=== PATIENT | female | born 1950 | race Caucasian/White ===

== ENCOUNTER 2018-05-05 11:44 | Outpatient (CLI) | payer MEDICARE, SELFPAY ==
--- NOTE | 2018-05-05 11:45 | DI.US_ITS ---
SYMPTOMS/DIAGNOSIS: SOFT TISSUE MASS, M79.9, APPROXIMATELY 4.5 X 4 CM ROUND, MOBILE, SOFT, WELL-DEFINED MASS IN RIGHT UPPER QUADRANT, RECENTLY GROWN ULTRASOUND OF THE SOFT TISSUE: The area of palpable abnormality was scanned. There is a smoothly marginated homogeneous ovoid lesion isoechoic to fat corresponding to the palpable abnormality. It measures 2.9 x 1.3 x 2.9 cm and is consistent with a simple lipoma. No fluid collection or suspicious findings are seen. IMPRESSION: A 2.9 cm lipoma corresponding to the palpable abnormality.
== END 2018-05-05 12:04 ==
PROVIDERS: PCP Nurse Practitioner Family; Visit Provider Nurse Practitioner
DX: R22.2 Localized swelling, mass and lump, trunk (principal); D17.79 Benign lipomatous neoplasm of other sites
CPT/HCPCS: 76705

== ENCOUNTER 2018-07-23 16:04 | Outpatient (REF) | payer MEDICARE, SELFPAY | END 2018-07-23 16:24 | LOC: NCHCN 16:04 | PROVIDERS: PCP Nurse Practitioner Family; Visit Provider Nurse Practitioner | DX: R35.0 Frequency of micturition (principal) | CPT/HCPCS: 87077; 87086; 87186 ==

== ENCOUNTER 2018-10-24 12:07 | Outpatient (REF) | payer MEDICARE, SELFPAY ==
[2018-10-24 14:26] LABS: Cholesterol 266 mg/dL (50-200); HDL Cholesterol 99 mg/dL (40-60); LDL CHOLESTEROL 155 mg/dL (<100); Triglyceride 46 mg/dL (30-150)
== END 2018-10-24 12:27 ==
LOC: NCHCN 12:07
PROVIDERS: PCP Nurse Practitioner Family; Visit Provider Nurse Practitioner
DX: E03.9 Hypothyroidism, unspecified (principal)
CPT/HCPCS: 80061; 83721; 84443

== ENCOUNTER 2018-12-08 15:55 | Outpatient (REF) | payer MEDICARE, SELFPAY | END 2018-12-08 16:15 | LOC: NCHCN 15:55 | PROVIDERS: PCP Nurse Practitioner Family; Visit Provider Nurse Practitioner Family | DX: N39.0 Urinary tract infection, site not specified (principal) | CPT/HCPCS: 87077; 87086; 87186 ==

== ENCOUNTER 2018-12-15 10:49 | Outpatient (CLI) | payer MEDICARE, SELFPAY ==
--- NOTE | 2018-12-15 10:08 | DI.RAD_ITS ---
SYMPTOMS/DIAGNOSIS: RT KNEE PAIN RIGHT KNEE: There is mild narrowing of the medial femoral tibial joint space. Spurring is seen from the femoral condyles and tibial plateaus, greater medially. There is mild spurring at the articular aspect of the patella and quadriceps insertion. No joint effusion is seen. IMPRESSION: Mild to moderate degenerative changes.
== END 2018-12-15 11:09 ==
PROVIDERS: PCP Nurse Practitioner Family; Referring Provider Nurse Practitioner Family; Visit Provider Student in an Organized Health Care Education/Training Program
DX: M25.561 Pain in right knee (principal); M17.11 Unilateral primary osteoarthritis, right knee
CPT/HCPCS: 73562; 99201; 99204; 99202

== ENCOUNTER → 2019-01-05 14:56 | Outpatient (BNVA) | payer MEDICARE, SELFPAY | PROVIDERS: PCP Nurse Practitioner Family; Referring Provider Nurse Practitioner Family; Visit Provider Student in an Organized Health Care Education/Training Program | DX: M17.11 Unilateral primary osteoarthritis, right knee (principal); M79.604 Pain in right leg | CPT/HCPCS: 20610; 99212; 99213; J1040 ==

== ENCOUNTER 2019-02-02 15:52 | Outpatient (REF) | payer MEDICARE, SELFPAY ==
[2019-02-02 21:33] LABS: ALT 27 U/L (12-78); AST 21 U/L (15-37); Albumin 3.8 g/dL (3.4-5.0); Alkaline Phosphatase 112 U/L (46-116); Anion Gap 10.5 mmol/L (3-11); BUN 19 mg/dL (7-18); Bilirubin, Total 0.4 mg/dL (0.2-1.0); CO2 25.5 mmol/L (21.0-32.0); CREATININE 0.84 mg/dL (0.55-1.02); Calculated LDL 118; Chloride 103 mmol/L (98-107); Cholesterol 243 mg/dL (50-200); Glucose 73 mg/dL (70-100); HDL Cholesterol 115 mg/dL (40-60); Potassium 3.9 mmol/L (3.5-5.1); Sodium 139 mmol/L (136-145); Total Protein 7.4 g/dL (6.4-8.2); Triglyceride 54 mg/dL (30-150)
[2019-02-04 11:12] LABS: Hepatitis C Ab w Rflx HCV PCR Negative (NEGAT)
== END 2019-02-02 16:12 ==
LOC: NCHCN 15:52
PROVIDERS: PCP Nurse Practitioner Family; Visit Provider Nurse Practitioner Family
DX: E03.9 Hypothyroidism, unspecified (principal); E78.5 Hyperlipidemia, unspecified; K30 Functional dyspepsia; G47.00 Insomnia, unspecified; N39.0 Urinary tract infection, site not specified; M79.604 Pain in right leg; N30.10 Interstitial cystitis (chronic) without hematuria; C50.919 Malignant neoplasm of unspecified site of unspecified female breast
CPT/HCPCS: 80053; 80061; 83721; 86803

== ENCOUNTER → 2019-02-16 14:50 | Outpatient (BNVA) | payer MEDICARE, SELFPAY | PROVIDERS: PCP Nurse Practitioner Family; Referring Provider Nurse Practitioner Family; Visit Provider Student in an Organized Health Care Education/Training Program | DX: M17.11 Unilateral primary osteoarthritis, right knee (principal); Z98.890 Other specified postprocedural states | CPT/HCPCS: 99213 ==

== ENCOUNTER 2019-03-11 00:30 | Outpatient (CLI) | payer MEDICARE, SELFPAY ==
--- NOTE | 2019-03-11 10:47 | DI.MRI_ITS ---
SYMPTOMS/DIAGNOSIS: RT KNEE PAIN, M17.11, UNILATERAL OSTEOARTHRITIS RT KNEE RIGHT KNEE MRI: Axial T 2 fat sat, coronal T 1, Coronal T 2 fat sat, sagittal proton density, sagittal T 2 fat sat and sagittal proton density thin ACL pulse sequences were performed. There is a small joint effusion. The extensor mechanism of the knee appears intact. No cruciate or meniscal tear is apparent. There are mild hypertrophic bony changes. There is no demonstrated osteochondral defect. The patella and patella cartilage and medial and lateral patellar retinaculum and medial and lateral collateral ligaments of the knee are intact. SUMMARY: A small joint effusion is demonstrated. Mild degenerative bony changes are apparent. There is no evidence of a meniscal or cruciate tear.
== END 2019-03-11 00:50 ==
PROVIDERS: PCP Nurse Practitioner Family; Visit Provider Student in an Organized Health Care Education/Training Program
DX: M17.11 Unilateral primary osteoarthritis, right knee (principal); M25.561 Pain in right knee; M25.461 Effusion, right knee
CPT/HCPCS: 73721

== ENCOUNTER → 2019-03-13 10:39 | Outpatient (BNVA) | payer MEDICARE, SELFPAY | PROVIDERS: PCP Nurse Practitioner Family; Referring Provider Nurse Practitioner Family; Visit Provider Student in an Organized Health Care Education/Training Program | DX: S83.271A Complex tear of lateral meniscus, current injury, right knee, initial encounter (principal); X58.XXXA Exposure to other specified factors, initial encounter | CPT/HCPCS: 99213 ==

== ENCOUNTER 2019-11-05 12:29 | Outpatient (REF) | payer MEDICARE, SELFPAY ==
[2019-11-05 21:21] LABS: Magnesium 2.1 mg/dL (1.8-2.4); TSH (W/Ref FT4) 1.99 uIU/mL (0.36-3.74); Vitamin B12 1838 pg/mL (193-986)
== END 2019-11-05 12:49 ==
LOC: NCHCN 12:29
PROVIDERS: PCP Nurse Practitioner Family; Visit Provider Nurse Practitioner Family
DX: E03.9 Hypothyroidism, unspecified (principal); E78.5 Hyperlipidemia, unspecified; F41.8 Other specified anxiety disorders; J30.2 Other seasonal allergic rhinitis; K30 Functional dyspepsia; N39.0 Urinary tract infection, site not specified; C50.919 Malignant neoplasm of unspecified site of unspecified female breast; N30.10 Interstitial cystitis (chronic) without hematuria
CPT/HCPCS: 82607; 83735; 84443

== ENCOUNTER 2020-01-15 08:13 | Outpatient (CLI) | payer MEDICARE, SELFPAY ==
--- NOTE | 2020-01-15 | DI.RAD_ITS ---
EXAM: XR LUMBAR SPINE COMPLETE CLINICAL HISTORY: LOW BACK PAIN < 6 MONTHS AND SACRAL AREA PAIN, M54.5. TECHNIQUE: 2D digital imaging was performed. COMPARISON: No exams were available for comparison FINDINGS: There are 5 lumbar type vertebral bodies. There is a mild left convex curvature of the spine. Small osteophytes are seen at several disc levels. The disc heights are well maintained. There are degen erative changes of the facets from L3-4 through L5-S1. No spondylolysis or spondylolisthesis is pres ent. No acute fracture or subluxation is present. IMPRESSION: Mild degenerative changes of the lumbar spine. DATA REPOSITORY: RADIATION DOSE DELIVERED:
--- NOTE | 2020-01-15 | DI.RAD_ITS ---
EXAM: XR PELVIS AP CLINICAL HISTORY: LOW BACK PAIN < 6 MONTHS, M54.5. TECHNIQUE: 2D digital imaging was performed. COMPARISON: No exams were available for comparison FINDINGS: Mild degenerative changes are seen in the hips bilaterally. The sacroiliac joints and symphysis pubi s are unremarkable. Bones are normally mineralized. The soft tissues are unremarkable. IMPRESSION: Mild degenerative changes of the hips. DATA REPOSITORY: RADIATION DOSE DELIVERED:
== END 2020-01-15 08:33 ==
PROVIDERS: PCP Nurse Practitioner Family; Visit Provider Internal Medicine
DX: M54.5 Low back pain (principal); M16.0 Bilateral primary osteoarthritis of hip; M47.817 Spondylosis without myelopathy or radiculopathy, lumbosacral region
CPT/HCPCS: 72110; 72170

== ENCOUNTER → 2020-02-17 09:51 | Outpatient (BNVA) | payer MEDICARE, SELFPAY | PROVIDERS: PCP Nurse Practitioner Family; Referring Provider Nurse Practitioner Family; Visit Provider Surgery | DX: L72.3 Sebaceous cyst (principal); D17.1 Benign lipomatous neoplasm of skin and subcutaneous tissue of trunk | CPT/HCPCS: 99201; 99213 ==

== ENCOUNTER → 2020-02-19 10:23 | Outpatient (BNVA) | payer MEDICARE, SELFPAY | PROVIDERS: PCP Nurse Practitioner Family; Referring Provider Nurse Practitioner Family; Visit Provider Surgery | DX: L72.8 Other follicular cysts of the skin and subcutaneous tissue (principal) | CPT/HCPCS: 11420; 99212 ==

== ENCOUNTER 2020-02-19 12:56 | Outpatient (REF) | payer MEDICARE, SELFPAY ==
--- NOTE | 2020-02-19 10:50 | SKI_PTH ---
PATIENT: Parvin Orellana LOC: [facility] U#:[id number] AGE/SX: 69/F ROOM: RE02/19/[address]: Margo Aguilar : 1950 BED: DIS: 02/19/2020 SPEC #: [id number] RECD: 02/19/20 13:04 STATUS: JACKIE REQ #: [id number] GAURI: 02/19/20 10:[address]: Margo Aguilar DEPT: Surgical Specimen RECD BY: Lisa Angeles ENTERED: 02/19/20 13:04 SP TYPE: KENNETH PEREIRA DR: Kristie Sellers Tissues: 1 - SKIN CYST/TAG/DEBRIDEMENT Procedures: SKIN LEVEL 4 Comments: [id number]
== END 2020-02-19 13:16 ==
LOC: LBN 12:56
PROVIDERS: PCP Nurse Practitioner Family; Visit Provider Surgery
DX: L72.8 Other follicular cysts of the skin and subcutaneous tissue (principal); L72.11 Pilar cyst
CPT/HCPCS: 88304; 88305

== ENCOUNTER 2020-10-24 16:43 | Outpatient (REF) | payer MEDICARE, SELFPAY ==
[2020-10-24 13:58] LABS: Anion Gap 5.2 mmol/L (3-11); BUN 14 mg/dL (7-18); CO2 26.8 mmol/L (21.0-32.0); CREATININE 0.8 mg/dL (0.55-1.02); Calcium 9.1 mg/dL (8.5-10.1); Calculated LDL 135 mg/dL (<100); Chloride 107 mmol/L (98-107); Cholesterol 237 mg/dL (<200); Glucose 90 mg/dL (74-106); HDL Cholesterol 94 mg/dL (40-60); Magnesium 2.1 mg/dL (1.8-2.4); Potassium 4.6 mmol/L (3.5-5.1); Sodium 139 mmol/L (136-145); TSH (W/Ref FT4) 2.86 uIU/mL (0.36-3.74); Triglyceride 41 mg/dL (<150); Vitamin B12 1010 pg/mL (193-986)
== END 2020-10-24 16:44 | disposition home or self-care (01) ==
LOC: NCHCN 16:43
PROVIDERS: PCP Nurse Practitioner Family; Visit Provider Nurse Practitioner Family
DX: E03.9 Hypothyroidism, unspecified (principal); E78.5 Hyperlipidemia, unspecified; R03.0 Elevated blood-pressure reading, without diagnosis of hypertension
CPT/HCPCS: 80048; 80061; 82607; 83735; 84443

== ENCOUNTER 2021-10-13 00:33 | Outpatient (CLI) | payer MEDICARE, SELFPAY ==
--- NOTE | 2021-10-13 | DI.DEXA_ITS ---
Exam(s) XR DEXA BONE DENSITY W/WO FILOMENA EXAM: XR DEXA BONE DENSITY W/WO FILOMENA CLINICAL HISTORY: OTHER DISORDER BONE DENSITY M85.88 TECHNIQUE: COMPARISON: No exams were available for comparison FINDINGS: Lateral Spine Image: Unremarkable. No compression deformities identified. Left hip: Total T-Score: -1.0 Total Z-Score: 0.6 T- and Z-scores: Within normal limits. Lumbar Spine: Total T-Score: -1.2 Total Z-Score: 1.0 T- and Z-scores: Findings consistent with osteopenia. IMPRESSION: No evidence of osteoporosis.
== END 2021-10-13 00:53 ==
PROVIDERS: PCP Nurse Practitioner Family; Visit Provider Nurse Practitioner Family
DX: M85.88 Other specified disorders of bone density and structure, other site (principal); Z13.820 Encounter for screening for osteoporosis
CPT/HCPCS: 77080

== ENCOUNTER 2021-11-07 18:22 | Outpatient (REF) | payer MEDICARE, SELFPAY ==
[2021-11-07 15:36] LABS: Anion Gap 8.3 mmol/L (3-11); BUN 16 mg/dL (7-18); CO2 26.7 mmol/L (21.0-32.0); CREATININE 0.9 mg/dL (0.55-1.02); Calcium 9.2 mg/dL (8.5-10.1); Calculated LDL 155 mg/dL (<100); Chloride 104 mmol/L (98-107); Cholesterol 273 mg/dL (<200); Glucose 92 mg/dL (74-106); HDL Cholesterol 106 mg/dL (40-60); Magnesium 2.5 mg/dL (1.8-2.4); Potassium 4.3 mmol/L (3.5-5.1); Sodium 139 mmol/L (136-145); TSH (W/Ref FT4) 1.97 uIU/mL (0.36-3.74); Triglyceride 61 mg/dL (<150); Vitamin B12 1174 pg/mL (193-986)
== END 2021-11-07 18:23 | disposition home or self-care (01) ==
LOC: NCHCN 18:22
PROVIDERS: PCP Nurse Practitioner Family; Visit Provider Nurse Practitioner Family
DX: E03.9 Hypothyroidism, unspecified (principal); R03.0 Elevated blood-pressure reading, without diagnosis of hypertension; K30 Functional dyspepsia; N30.10 Interstitial cystitis (chronic) without hematuria; F43.10 Post-traumatic stress disorder, unspecified; M85.88 Other specified disorders of bone density and structure, other site
CPT/HCPCS: 80048; 80061; 82607; 83735; 84443

== ENCOUNTER → 2022-06-20 10:46 | Outpatient (BNVA) | payer MEDICARE, SELFPAY | PROVIDERS: PCP Nurse Practitioner Family; Referring Provider Nurse Practitioner Family; Visit Provider Surgery | DX: D17.9 Benign lipomatous neoplasm, unspecified (principal) | CPT/HCPCS: 99213 ==

== ENCOUNTER 2022-07-13 08:00 | Day surgery (SDC) | payer MEDICARE, SELFPAY ==
--- NOTE | 2022-07-12 14:10 | PDOC.DSDIS_ITS ---
Date of service: 07/13/22 Time of Service: 11:12 Discharge Plan Disposition Patient Disposition: HOME Condition: Good Condition: Good Discharge Details Reason For Visit: Lipoma excision Attending Provider: Ozzie Aguayo Primary Care Provider: Kristie Sellers Home Meds and New Rx's Prescriptions: Continued Dual Action Complete [phone] mg tablet,chewable 1 tab PO BID alprazolam [Xanax] 0.5 mg tablet 0.5 mg PO QHS PRN cholecalciferol (vitamin D3) 25 mcg (1,000 unit) capsule 25 mcg PO DAILY oxymetazoline [Afrin (oxymetazoline)] 0.05 % spray,non-aerosol 2 spray ECTOR Q12H PRN levothyroxine 50 mcg capsule 50 mcg PO DAILY B-complex with vitamin C [Super B Complex-Vitamin C] Tablet 1 tab PO DAILY nitrofurantoin monohyd/m-cryst [Macrobid] 100 mg capsule 100 mg PO Q12H PRN Rx Instructions: must administer with a meal/food amitriptyline 10 mg tablet 10 mg PO BID docusate sodium [Colace] 100 mg capsule 100 mg PO DAILY oxymetazoline [12 Hour Nasal Relief [place]] 0.05 % spray,non-aerosol 2 spray intranasal Q12H PRN prazosin 1 mg capsule 1 mg PO QHS simvastatin 20 mg tablet 20 mg PO DAILY Gaviscon 80-14.2 mg tablet,chewable 1 tab PO DAILY cbd 25 mg gum PO Discharge Instructions Additional Instructions: 1. Resume all of your medications. 2. Okay to use aspirin and ibuprofen over the counter as needed. You should alternate these 3. Leave bandages in place for 24 hours, then remove. 4. Shower with warm soapy water. Pat dry. Use a bandaid if needed to protect your clothing. 5. No soaking or tub baths until I see you in the office. 6. No heavy lifting until I see you in the office. 7.Call the office (or go directly to the emergency room after hours) if you notice any of the following: Develop chills (warm to touch), or if you have a thermometer and your temperature is above 101 Difficulty breathing or difficultly swallowing Persistent vomiting Any bleeding ? exceeding one tablespoon 8. Call your physician if the site where your intravenous was started becomes red, swollen, painful, and warm to touch. Referrals: Ozzie Aguayo MD [ [facility] STAFF PHYSICIAN] - (10-14 days for routine follow up) Activity:: Activity as Tolerated Remove Dressings/Wound Care:: 24 hours Shower/Bathe:: 24 hours Diet:: As Tolerated DS: Diagnosis Discharge Diagnosis (1) Lipoma: Status: Acute Asessment and Plan: Follow-up in my office 10 to 14 days for routine follow-up and suture removal
--- NOTE | 2022-07-12 14:13 | ROE_ITS ---
Date of service: 07/13/22 Time of Service: 11:13 Operative Note Operative Note DATE OF PROCEDURE: 07/13/22 PRE-OP DIAGNOSIS: Lipoma left lower back, lipoma right upper quadrant POST-OP DIAGNOSIS: same PROCEDURE: Excision and primary closure of lipomas SURGEON: Ozzie Aguayo [employer]UTIONS DIRECTOR: Lay Dunlap ANESTHESIA TYPE: Local By Surgeon and MAC Refer to Anesthesia Record ESTIMATED BLOOD LOSS: 50 PATHOLOGY: other (Lipoma left lower back, lipoma right upper quadrant) COMPLICATIONS: None Patient was transported to: same day Patient's condition: stable Procedure Description: After establishing an appropriate level of anesthetic, we assisted the patient into the right lateral decubitus position. I prepped and draped the right lower back. Next, I established a field block using local anesthetic. I then made a linear incision over the lipoma. I dissected down through the subcutaneous fat until I encountered the capsule of the lipoma. Next, using circumferential dissection with a combination of Metzenbaum scissors and Bovie electrocautery, I completely excised the lipoma down to the level of the sacroiliac fascia. Specimen was passed off the field. The wound was irrigated and carefully examined. It appeared hemostatic. I used Vicryl stitches to approximate the deep skin and obliterate the potential space. Next, the skin was closed with interrupted nylon stitches. Bandages were applied, the patient was assisted back to supine position. I then prepped and draped the area of the right upper quadrant. Again, I established a field block using local anesthetic. Similar to the back, I incised the skin and dissected down to the capsule of the lipoma. I then used circumferential dissection to elevated up into the operative field. I divided the filmy adhesions along the lower border and passed off the specimen. I then irrigated the wound. There was a minimal amount of bleeding from the subcutaneous fat that was easily controlled with Bovie. Vicryl stitches were used to close the deep space, and the skin was closed with a running subcuticular stitch. Bandages were applied, and the patient was allowed awaken from the anesthetic and brought to the same-day recovery unit
--- NOTE | 2022-07-13 05:08 | ANES.PREOP_ITS ---
General Info Date of Service Date Performed: 07/13/22 Height: 5 ft 5 in Weight: 60.06 kg Body Mass Index (BMI): 22.0 Surgical Procedure: Operation Date: 07/13/22 09:10 Proposed Procedure Side Surgeon p Excision and Closure of Soft Tissue Masses Ozzie Aguayo MD Meds Allergies and Home Medications Allergies Allergy/AdvReac Type Severity Reaction Status Date / Time Penicillins Allergy Severe Anaphylaxsi Unverified 07/13/22 08:35 s atorvastatin AdvReac Severe abdominal Verified 07/13/22 08:35 pain, trapped gas oxycodone [Oxycodone] AdvReac Intermediate I get Unverified 07/13/22 08:35 severe energy, extreme hyperactivity Sulfa (Sulfonamide AdvReac Intermediate hives Unverified 07/13/22 08:35 Antibiotics) Home Medication Medication Instructions Recorded B-complex with vitamin C (Super B 1 tab PO DAILY 02/16/20 Complex-Vitamin C tablet) alprazolam 0.5 mg tablet (Xanax) 0.5 mg PO QHS PRN 02/16/20 cholecalciferol (vitamin D3) 25 25 mcg PO DAILY 02/16/20 mcg (1,000 unit) capsule famotidine-Ca carb-mag hydrox 10 1 tab PO BID 02/16/20 mg-800 mg-165 mg chewable tablet (Dual Action Complete) levothyroxine 50 mcg capsule 50 mcg PO DAILY 02/16/20 oxymetazoline 0.05 % nasal spray 2 spray intranasal Q12H PRN 02/16/20 (Afrin (oxymetazoline)) amitriptyline 10 mg tablet 10 mg PO BID 08/09/21 docusate sodium 100 mg capsule 100 mg PO DAILY 08/09/21 (Colace) oxymetazoline 0.05 % nasal spray 2 spray intranasal Q12H PRN 08/09/21 (12 Hour Nasal Relief [place]) Al hyd-Mg tr-alg ac-sod bicarb 80 1 tab PO DAILY 05/31/22 mg-14.2 mg chewable tablet (Gaviscon) cbd PO 05/31/22 prazosin 1 mg capsule 1 mg PO QHS 05/31/22 simvastatin 20 mg tablet 20 mg PO DAILY 05/31/22 nitrofurantoin 100 mg PO Q12H PRN 06/20/22 monohydrate/macrocrystals 100 mg capsule (Macrobid) Current Visit Medications: Current Medications Generic Name Dose Route Start Last Admin Trade Name Freq PRN Reason Stop Dose Admin Acetaminophen 1,000 mg 07/13/22 06:00 Acetaminophen 500 Mg Tab PO 07/13/22 23:59 PREOP BRANDEN Celecoxib 200 mg 07/13/22 06:00 Celecoxib 200 Mg Cap PO 07/13/22 23:59 PREOP [facility] Gabapentin 600 mg 07/13/22 06:00 Gabapentin 300 Mg Cap PO 07/13/22 16:00 PREOP [facility] Ringer's Solution 1,000 mls @ 80 mls/hr 07/13/22 06:00 IV 07/13/22 23:59 INFUSION [facility] Vancomycin/PEG/NADA/Lysine/Water 2 gm in 400 mls @ 200 mls/hr 07/13/22 06:00 Vancocin Injection IVPB 07/13/22 16:00 PREOP [facility] IV Miscellaneous Supplies 1 each 07/13/22 06:00 Iv Access IV 07/13/22 23:59 DIRECTED BRANDEN Sodium Chloride 0 ml 07/13/22 06:00 Normal Saline Flush 10 Ml Syr IV 07/13/22 23:59 PRN PRN Sodium Chloride 0 ml 07/13/22 06:00 Normal Saline 10 Ml Vial IJ 07/13/22 23:59 DIRECTED PRN Sterile Water 0 ml 07/13/22 06:00 Water,Injection,Sterile 10 Ml Vial IJ 07/13/22 23:59 DIRECTED PRN PFSH Active Problems Active Problems: Problem Status Onset Code Lipoma D17.9 Sun-damaged skin L57.8 Lipoma of abdominal wall D17.1 Sebaceous cyst L72.3 Impacted cerumen of both ears H61.23 Tear of lateral meniscus of right knee S83.281A Primary osteoarthritis of right knee M17.11 Medical History Medical History Breast cancer (~2009) Right breast 2010 Left breast ductal carcinoma in situ 2017 Depression Dyspepsia HLD (hyperlipidemia) Hypothyroidism Insomnia Interstitial cystitis Lower back pain Recurrent UTI Rosacea Seasonal allergies Stress incontinence Surgical History Surgical History History of colonoscopy (~2014) Tobacco Smoking/Tobacco Use Status: Never Alcohol Alcohol Intake: current Alcohol intake frequency: a few times a week Substance Use Substance use: Never Substance use type: does not use Vital Signs and Lab Results Vital Signs Most Recent Vital Signs in EMR: Temp Pulse Resp Pulse Ox 36.2 C L 68 16 99 07/13/22 08:25 07/13/22 08:25 07/13/22 08:25 07/13/22 08:25 Lab Results Blood Type / Crossmatch: No Data to Display Complete Blood Count: No Data to Display Complete Metabolic Panel: No Data to Display Liver Function Panel: No Data to Display Coagulation Panel: No Data to Display Cardiac Panel: No Data to Display Arterial Blood Gas: No Data to Display Venous Blood Gas: No Data to Display Pancreas Panel: No Data to Display Thyroid Panel: No Data to Display Infectious Disease: No Data to Display Blood Cultures: No Data to Display Toxicology Panel: No Data to Display Anesthesia Assessment and Plan Anesthesia History Personal History: No History of Anesthesia Complications Family History: No Family History of Anesthesia Complications Exercise Tolerance Exercise Tolerance: Metabolic Equivalents>4 Cardiac & Pulmonary Exam Cardiac Exam: Normal S1/S2 Heart Sounds Pulmonary Exam: Clear Bilateral Breath Sounds Implantable Cardiac Device Does patient have a Pacemaker or an ICD?: No Airway Exam Known Difficult Airway: No Mallampati Class: 4 Mouth Opening: Narrow (< 3cm) Thyromental Distance: Less than 3 cm Neck Range of Motion: Limited ROM Neck Circumference: Normal Teeth Condition: Normal Dentition ASA Classification ASA Score: ASA 2 Emergency Case?: No NPO Status NPO Status: NPO Clears >2 hours, Solids >8 hours Anesthesia Plan Resuscitation Status: Full Code Anesthesia Technique: General Anesthesia Airway Planned: Natural Airway Monitors Used: Standard Monitors Preoperative Comments:: 71 yo female for lipoma removal. Sig PMHx: breast CA, depression/anxiety/PTSD (xanax, amitriptyline), hypothyroid (on replacement), low back pain, never smoker, occ EtOH.
[2022-07-13 08:25] VITALS: PULSE 68; RESP 16; TEMP 36.2; O2SAT 99
[2022-07-13] MEDS: Acetaminophen 500 MG TAB 1000 MG PO (08:47)
[2022-07-13] MEDS: Gabapentin 300 MG CAP 600 MG PO (08:47)
[2022-07-13] MEDS: Celecoxib 200 MG CAP PO (08:47)
[2022-07-13] MEDS: Lactated Ringers 1,000 ML 80 ML IV (09:00)
[2022-07-13 09:25] VITALS: BMI 22.0
[2022-07-13] MEDS: Bupivacaine 0.25% Pres-Free 30 ML VIAL (10:15)
--- NOTE | 2022-07-13 10:27 | SOFT_PTH ---
PATIENT: Parvin Orellana LOC: [facility] U#:[id number] AGE/SX: 71/F ROOM: RE07/13/[address]: Ozzie Aguayo MD : 1950 BED: DIS: 07/13/2022 SPEC #: [id number] RECD: 07/13/22 13:19 STATUS: JACKIE REQ #: [id number] GAURI: 07/13/22 10:[address]: Ozzie Aguayo DEPT: Surgical Specimen RECD BY: Lisa Angeles ENTERED: 07/13/22 13:20 SP TYPE: SOFT OTHR DR: Kristie Sellers Tissues: 1 - SOFT TISSUE MISC (INC. LIPOMA) 2 - SOFT TISSUE MISC (INC. LIPOMA) Procedures: GROSS AND MICRO LEVEL 4 Comments: [id number]
[2022-07-13 11:01] VITALS: BP 115/72; PULSE 64; RESP 18; TEMP 36.5; O2SAT 98
--- NOTE | 2022-07-13 11:14 | W.ANESPOSTOP ---
Postoperative Evaluation Date, Time and Location Date Performed: 07/13/22 Time Performed: 11:15 Patient Location: Day Surgery Unit Vital Signs Most Recent Imported Vital Signs: Most Recent Vital Signs Temp Pulse Resp BP Pulse Ox 36.5 C 64 18 115/72 98 07/13/22 11:01 07/13/22 11:01 07/13/22 11:01 07/13/22 11:01 07/13/22 11:01 Pain Score Most Recent Pain Score: Most Recent Pain Score Pain Level 2 07/13/22 11:01 Assessment Mental Status: Awake (Alert & Oriented to Patient Baseline) Airway and Respiratory Function: Patent airway with normal (patient baseline) respiratory exam Cardiovascular Function: Hemodynamically Stable Hydration Status: Adequately Hydrated Nausea & Vomiting: No Nausea or Vomiting Pain: Pain is tolerable per patient Peripheral Nerve Block: Patient did not receive a nerve block
[2022-07-13 11:30] VITALS: BP 145/86; PULSE 58; RESP 18; TEMP 36.5; O2SAT 100
== END 2022-07-13 12:00 | disposition home or self-care (01) ==
PROVIDERS: PCP Nurse Practitioner Family; Visit Provider Surgery
PROC: (CPT 22903; principal; 2022-07-13 09:00)
DX: D17.1 Benign lipomatous neoplasm of skin and subcutaneous tissue of trunk (principal); E03.9 Hypothyroidism, unspecified
CPT/HCPCS: 22903; 21931; 88305; 88304; J0690; J2405

== ENCOUNTER → 2022-07-18 09:54 | Outpatient (BNVA) | payer MEDICARE, SELFPAY | PROVIDERS: PCP Nurse Practitioner Family; Referring Provider Nurse Practitioner Family; Visit Provider Surgery | DX: D17.1 Benign lipomatous neoplasm of skin and subcutaneous tissue of trunk (principal); T81.31XA Disruption of external operation (surgical) wound, not elsewhere classified, initial encounter ==

== ENCOUNTER 2022-11-13 09:41 | Outpatient (REF) | payer MEDICARE, SELFPAY ==
[2022-11-13 16:25] LABS: ALT 28 U/L (14-59); AST 19 U/L (15-37); Albumin 3.8 g/dL (3.4-5.0); Alkaline Phosphatase 91 U/L (46-116); Anion Gap 7.5 mmol/L (3-11); BUN 19 mg/dL (7-18); Bilirubin, Total 0.5 mg/dL (0.2-1.0); CO2 28.5 mmol/L (21.0-32.0); CREATININE 0.9 mg/dL (0.55-1.02); Calcium 9.6 mg/dL (8.5-10.1); Calculated LDL 153 mg/dL (<100); Chloride 104 mmol/L (98-107); Cholesterol 277 mg/dL (<200); Glucose 100 mg/dL (74-106); HDL Cholesterol 113 mg/dL (40-60); Magnesium 2.3 mg/dL (1.8-2.4); Potassium 4.9 mmol/L (3.5-5.1); Sodium 140 mmol/L (136-145); Total Protein 7.1 g/dL (6.4-8.2); Triglyceride 59 mg/dL (<150); Vitamin B12 935 pg/mL (193-986)
== END 2022-11-13 09:42 | disposition home or self-care (01) ==
LOC: NCHCN 09:41
PROVIDERS: PCP Nurse Practitioner Family; Visit Provider Nurse Practitioner Family
DX: E03.9 Hypothyroidism, unspecified (principal); E78.5 Hyperlipidemia, unspecified; I10 Essential (primary) hypertension; K30 Functional dyspepsia; M85.88 Other specified disorders of bone density and structure, other site; Z79.899 Other long term (current) drug therapy
CPT/HCPCS: 80053; 80061; 82306; 82607; 83735; 84443

== ENCOUNTER → 2023-06-17 11:02 | Outpatient (BNVA) | payer MEDICARE, SELFPAY | PROVIDERS: PCP Nurse Practitioner Family; Referring Provider Nurse Practitioner Family; Visit Provider Surgery | DX: Z12.11 Encounter for screening for malignant neoplasm of colon (principal) ==

== ENCOUNTER → 2023-07-16 02:11 | Outpatient (CLI) | payer MEDICARE, SELFPAY ==
--- NOTE | 2023-07-16 | DI.US_ITS ---
Exam(s) US SOFT TISS ABD WALL/LOW BACK EXAM: US SOFT TISS ABD WALL/LOW BACK CLINICAL HISTORY: ABD MASS,R19.00. TECHNIQUE: Ultrasound was performed using standard protocol. COMPARISON: US US soft tiss abd wall/low back from 05/05/2018 FINDINGS: Sonographic assessment utilizing grayscale and color Doppler imaging was performed and targeted to th e area of clinical concern. There is a subtle area which is isoechoic to the surrounding fat and measures 2.2 x 0.8 x 1.7 cm. Th is appears to correspond to the palpable abnormality and is suggestive of a lipoma. No suspicious cy stic or solid masses are seen sonographically. IMPRESSION: Findings suggestive of a 2.2 x 0.8 x 1.7 cm lipoma. DATA REPOSITORY:
== END ==
PROVIDERS: PCP Nurse Practitioner Family; Visit Provider Nurse Practitioner Family
DX: R19.03 Right lower quadrant abdominal swelling, mass and lump (principal)
CPT/HCPCS: 76705

== ENCOUNTER 2023-08-13 13:20 | Day surgery (SDC) | payer MEDICARE, SELFPAY ==
--- NOTE | 2023-08-12 12:56 | HPE_ITS ---
History of Present Illness Narrative: Patient is here today for colonoscopy for CRC screening.??? They completed a bowel prep with just a clear yellow residual effluent.? They not having any chest pain or shortness of breath, currently.? They are not experiencing any fever or chills.? They deny any productive cough or upper respiratory tract infection signs or symptoms.? They are not having abdominal pain, or nausea and vomiting.? They have not had any changes in medications, past medical history or past surgical history since previously being seen in the office. They have not had any accidents or have been in the ER since the clinic pre-operative evaluation. ??I reviewed the procedure with the patient today, including risks and benefits of the procedure, and what they could expect at home for recovery.? All questions are answered to the patient?s satisfaction today, and they are stable to proceed with the proposed procedure. H: Pt here for colonoscopy, last one was done at [facility] 2004 pt states absolutley 100% they didnt find anything. Pt reports the prep was not well so she needs it done. Pt reports paternal grandfather had colon cancer. I did review her report from [facility] in 2004. It was significant for internal hemorrhoids. There were no polyps or diverticula noted. Pt seen at the request of PCP regarding colon cancer screening. Pt has had colon cancer screening before.? They denies problems with constipation or diarrhea.? They deny any pain or difficulty with bowel movements, or rectal bleeding.? There is family history of any colon cancer-paternal grandfather..? Pt has not had any unexplained weight loss.? Their appetite is good.? ?They deny heart, lung, or kidney problems. She does have GERD and takes pepcid and lifestyle modifications. . They have not had any prior colo-rectal surgery.? The patient has not had a prior MELLY.? They deny any problems with anesthesia in the past. No pain or bleeding from the hemorrhoids. Anesthesia: general (without airway) Previous surgical intolerances: No Previous surgical complications: No Pulmonary risk factors: Planned procedure: Yes Sleep apnea risks: No COPD/Asthma/Smoker:no Can climb one flight of stairs (12-13 steps) in less than 30 seconds without stopping and without symptoms: Yes The surgery proposed for this patient is: low risk Active cardiac conditions: none Active risk factors: none ASA (acetylsalicylic acid): not used Beta blockers: not used Kidneys: no concerns DM: Mi/CVA- no coffee-0 soda-0 eoth- 4/week. smoker-no ? PSHx CE lipomas -It is noted in her problem list that she had cancer in 2009. However the p atient did not mention having any surgery for breast cancer Review of Systems All systems reviewed & are unremarkable except as noted in HPI and below PFSH All Active Problems Encounter for colorectal cancer screening (Acute) External incisional dehiscence (Acute) Lipoma (Acute) back Sun-damaged skin (Acute) Lipoma of abdominal wall (Acute) Sebaceous cyst (Acute) Impacted cerumen of both ears (Acute) Tear of lateral meniscus of right knee (Acute) Primary osteoarthritis of right knee (Chronic) Injection: 01/05/2019 Medical History Osteopenia Palpitations Hypertension Lower back pain Seasonal allergies Dyspepsia Insomnia Depression Rosacea Hypothyroidism HLD (hyperlipidemia) Stress incontinence Recurrent UTI Interstitial cystitis Breast cancer (~2009) Right breast 2010 Left breast ductal carcinoma in situ 2017 Surgical History History of colonoscopy (~2014) Social History Smoking/Tobacco Use Status: Never Smoking risk assessment performed?: Yes Alcohol Intake: current Alcohol Intake frequency: a few times a week Alcohol type: wine Drug use: Never Substance use type: does not use Current gender identity: female Do you feel safe at home: Yes Do you feel safe in your relationship?: Yes Meds Allergies and Home Medications Allergies Allergy/AdvReac Type Severity Reaction Status Date / Time Penicillins Allergy Severe Anaphylaxsi Unverified 06/17/23 11:15 s atorvastatin AdvReac Severe abdominal Verified 06/17/23 11:15 pain, trapped gas oxycodone [Oxycodone] AdvReac Intermediate I get Unverified 06/17/23 11:15 severe energy, extreme hyperactivity Sulfa (Sulfonamide AdvReac Intermediate hives Unverified 06/17/23 11:15 Antibiotics) Home Medications Medication Instructions Recorded Confirmed Type B-complex with vitamin C (Super B 1 tab PO DAILY 02/16/20 06/18/23 History Complex-Vitamin C tablet) alprazolam 0.5 mg tablet (Xanax) 0.5 mg PO QHS PRN 02/16/20 06/18/23 History cholecalciferol (vitamin D3) 25 25 mcg PO DAILY 02/16/20 06/18/23 History mcg (1,000 unit) capsule levothyroxine 50 mcg capsule 50 mcg PO DAILY 02/16/20 06/18/23 History oxymetazoline 0.05 % nasal spray 2 spray intranasal Q12H PRN 02/16/20 06/18/23 History (Afrin (oxymetazoline)) amitriptyline 10 mg tablet 10 mg PO BID 08/09/21 06/18/23 History docusate sodium 100 mg capsule 100 mg PO DAILY 08/09/21 06/18/23 History (Colace) oxymetazoline 0.05 % nasal spray 2 spray intranasal Q12H PRN 08/09/21 06/18/23 History (12 Hour Nasal Relief [place]) cbd PO 05/31/22 06/18/23 History apple cider vinegar 600 mg capsule mg PO 04/03/23 06/18/23 History famotidine 20 mg tablet 40 mg PO DAILY 04/03/23 06/18/23 History bisacodyl 5 mg tablet,delayed 5 mg PO ONCE colonscopy bowel prep 06/17/23 06/18/23 Rx release (Dulcolax (bisacodyl)) #4 tabs polyethylene glycol 3350 17 238 g PO ONCE colonoscopy prep 06/17/23 06/18/23 Rx gram/dose oral powder #238 grams rosuvastatin 5 mg tablet 5 mg PO DAILY 06/17/23 06/18/23 History Exam Narrative Exam Narrative: PHYSICAL EXAM GENERAL APPEARANCE: Alert, healthy appearance, oriented, x 3,? in no acute distress HYDRATION: Well hydrated HEAD, EYES, EARS, NECK, THROAT: Head is normocephalic, pupils equal, round, reactive to light and accommodation, ocular movement intact, sclera clear and no jaundice. LUNGS: normal respiration/normal chest excursion. ?Clear to auscultation bilaterally. ?No wheeze. ?HEART: Regular rate and rhythm. no murmurs? ABDOMEN: soft and non-tender to palpation.? Normal bowel sounds.?
--- NOTE | 2023-08-12 15:30 | W.COLOREPORT ---
Colonoscopy Report Pre-op diagnosis general: CRC screening Surgeon: Margo Aguilar Anesthesia Type: General LMA/ETT Complications: None Disposition: same day Prep: Miralax/Dulcolax Procedure Description: After informed consent was obtained the patient was taken to the procedure room and placed in a left decubitous position. Monitors were applied and a time out was done. The patients name, date of , procedure, allergies to medications and metal in their body was reviewed. The patient was then sedated. Once sedated and comfortable a rectal exam was done. External exam was normal. Internal exam revealed a normal sphincter tone and no palpable masses. The prostate []. The scope was then introduced and retrofelexed. [] internal hemorrhoids were identified. The scope was then advanced to the cecum [] difficulty. The TI and appendiceal orifice were identified. The prep was []. The scope was then slowly retracted over [] minutes back into the rectum. Polyps were removed at []. The scope was removed and the patient was woken up and taken back to Same day surgery in stable condition. The patient tolerated the procedure well and there were no immediate complications. Follow up: The patient should follow up in [] years unless they develop changes in bowel habits or other new gastrointestinal complaints.
--- NOTE | 2023-08-12 15:32 | W.PM.DSUDISC ---
Discharge Plan Disposition Patient Disposition: Home Discharge Details Reason For Visit: colon scope Attending Provider: Margo Aguilar Primary Care Provider: Kristie Sellers Home Meds and New Rx's Prescriptions: Continued alprazolam [Xanax] 0.5 mg tablet 0.5 mg PO QHS PRN cholecalciferol (vitamin D3) 25 mcg (1,000 unit) capsule 25 mcg PO DAILY levothyroxine 50 mcg capsule 50 mcg PO DAILY B-complex with vitamin C [Super B Complex-Vitamin C] Tablet 1 tab PO DAILY rosuvastatin 5 mg tablet 5 mg PO DAILY amitriptyline 10 mg tablet 10 mg PO BID docusate sodium [Colace] 100 mg capsule 100 mg PO DAILY oxymetazoline [12 Hour Nasal Relief [place]] 0.05 % spray,non-aerosol 2 spray intranasal Q12H PRN cbd 25 mg gum PO apple cider vinegar 600 mg capsule PO famotidine 20 mg tablet 40 mg PO DAILY Discontinued polyethylene glycol 3350 17 gram/dose powder 238 g PO ONCE Qty: 238 0RF Rx Instructions: take per colonoscopy instructions bisacodyl [Dulcolax (bisacodyl)] 5 mg tablet,delayed release (DR/EC) 5 mg PO ONCE Qty: 4 0RF Rx Instructions: take per colonoscopy instructions Discharge Instructions Additional Instructions: DSU Colonoscopy Post-Op Instructions Instructions for Everyone who is given Anesthesia: For your safety, please do the following for the next twenty-four (24) hours: *Do Not operate a motor vehicle (car, truck, motorcycle, etc.) *Do Not drink alcoholic beverages or use any recreational drugs for the first 24 hours or while taking pain medications. The medications in your body may have a reaction that can be dangerous. *Do Not make any important decisions or sign any important papers. Findings: Follow up: 1. No lifting over 20 pounds or strenuous activity for the first 24 hours after your procedure. After 24 hours there are no restrictions on your activity but you may feel fatigued for a few days. 2. After you arrive home you may have a light meal and return to your normal diet as you can tolerate it without feeling sick to your stomach. 3. You may have a bloated, gaseous feeling in your belly (abdomen) after a colonoscopy. Passing gas and belching will help. Walking or lying down on your left side with your knees flexed may relieve the discomfort. Call the office at [phone] (Office) or [phone] (Hospital) right away if you notice any of the following: a.Vomiting of blood or ?coffee ground stools?. b.Rectal bleeding 1Tbsp, blood clots or continuous bleeding. c.Severe belly (abdominal) pain. d.A hard distended belly (abdomen) and an inability to pass gas. 4. Please don?t expect to have a normal BM (bowel movement) for 2-3 days after your procedure. 5. If there are questions regarding the findings of your procedure, please contact your doctor 6. If you are unable to contact your doctor with a problem, contact the hospital at [phone]. 7. Continue all your regular medications unless directed otherwise. I understand the above instructions and have no questions. Signature of Patient or Adult Escort Name of Responsible Adult Escort Signature of Nurse Date/Time Activity:: see above Diet:: see above Discharge Orders Discharge Orders: Discharge Order (Routine); Ordered 08/13/23 Ordered By: Margo Aguilar DS: Diagnosis Discharge Diagnosis (1) Screening for malignant neoplasm of colon performed: Status: Acute (2) Breast cancer:
[2023-08-13 14:02] VITALS: BP 130/78; PULSE 94; RESP 18; TEMP 36.4; O2SAT 99
--- NOTE | 2023-08-13 14:31 | W.SURGCON ---
Date of service: 08/13/23 Time of Service: 14:31 Assessment and Plan Assessment and plan (1) Screening for malignant neoplasm of colon performed: Status: Acute Assessment and plan: 72-year-old woman due for surveillance colonoscopy. No symptoms or increased risk factors. Plan: Colonoscopy History of Present Illness Narrative: 72-year-old woman had a colonoscopy about 15 years ago or so that was reportedly normal. She has no symptoms. An isolated grandparent had colon cancer. She has never had intra-abdominal surgery. PFSH All Active Problems Screening for malignant neoplasm of colon performed (Acute) Encounter for colorectal cancer screening (Acute) External incisional dehiscence (Acute) Sun-damaged skin (Acute) Lipoma of abdominal wall (Acute) Sebaceous cyst (Acute) Lipoma (Acute) back Impacted cerumen of both ears (Acute) Tear of lateral meniscus of right knee (Acute) Primary osteoarthritis of right knee (Chronic) Injection: 01/05/2019 Medical History Osteopenia Palpitations only a one time thing per pt. saw PCP never came up with a cause. Hypertension Lower back pain Seasonal allergies Dyspepsia Insomnia Depression Rosacea Hypothyroidism HLD (hyperlipidemia) Stress incontinence Recurrent UTI Interstitial cystitis Breast cancer (~2009) Right breast 2010 Left breast ductal carcinoma in situ 2017 Surgical History History of colonoscopy (~2014) Social History Smoking/Tobacco Use Status: Never Smoking risk assessment performed?: Yes Alcohol Intake: current Alcohol Intake frequency: a few times a week Alcohol type: wine Drug use: Never Substance use type: does not use Housing: house Current gender identity: female Do you feel safe at home: Yes Do you feel safe in your relationship?: Yes Exam Narrative Exam Narrative: General: Nontoxic, comfortable and interactive Neuro: Alert and oriented x 3 Psych: Good mood and affect, good insight and understanding into the procedure Chest: Nonlabored breathing and no wheezing Heart: Regular Results Last Vital Signs Temp 97.5 F L 08/13/23 14:02 Pulse 94 H 08/13/23 14:02 Resp 18 08/13/23 14:02 BP 130/78 08/13/23 14:02 Pulse Ox 99 08/13/23 14:02
[2023-08-13] MEDS: Lactated Ringers 1,000 ML 80 ML IV (14:32)
--- NOTE | 2023-08-13 14:34 | W.COLOREPORT ---
Date of service: 08/13/23 Time of Service: 14:34 Colonoscopy Report Procedure Description: PROCEDURES PERFORMED: 1. Colonoscopy PREOPERATIVE DIAGNOSIS: Surveillance colonoscopy POSTOPERATIVE DIAGNOSIS: Grade 1 internal hemorrhoids, sigmoid diverticulosis, sigmoid fibrosis SURGEON: Anthony Shukla MD INDICATION for procedure: The patient is a 72-year-old woman who has no symptoms and is due for surveillance colonoscopy. An isolated grandparent had colon cancer. Her last colonoscopy was more than 10 years ago and was reportedly normal. FINDINGS: Normal terminal ileum. No colon polyps. Significant diverticular disease in the sigmoid colon. There is definitely a region of fibrosis without a focal stricture or active inflammation. Mild internal hemorrhoid disease noted. SURVEILLANCE-INTERVAL/FOLLOW-UP: 10 years. Specimens: None EBL: Minimal COMPLICATIONS: None QUALITY of prep: Excellent Procedure in detail: The patient gave written consent and was in agreement with the indications, the potential risks as well as the benefits of the procedure. They were taken to the endoscopy suite and laid in the left lateral decubitus position. A timeout was performed and anesthesia was administered which was tolerated well. I started the procedure. Digital rectal and visual examination was performed and grossly within normal limits. A well-lubricated flexible colonoscope was then introduced and passed without any notable difficulty all the way to the cecum identified by the ileocecal valve and the appendiceal orifice. The terminal ileum was briefly intubated and looked normal visually. The scope was then slowly withdrawn with the above-noted findings. The patient tolerated the procedure well and was taken to the PACU in hemodynamically stable condition.
--- NOTE | 2023-08-13 14:37 | W.PM.DSUDISC ---
Date of service: 08/13/23 Time of Service: 14:37 Discharge Plan Disposition Patient Disposition: Home Condition: Good Discharge Details Reason For Visit: colon scope Attending Provider: Earnest Shukla Primary Care Provider: Kristie Sellers Home Meds and New Rx's Prescriptions: Continued alprazolam [Xanax] 0.5 mg tablet 0.5 mg PO QHS PRN cholecalciferol (vitamin D3) 25 mcg (1,000 unit) capsule 25 mcg PO DAILY levothyroxine 50 mcg capsule 50 mcg PO DAILY B-complex with vitamin C [Super B Complex-Vitamin C] Tablet 1 tab PO DAILY rosuvastatin 5 mg tablet 5 mg PO DAILY amitriptyline 10 mg tablet 10 mg PO BID docusate sodium [Colace] 100 mg capsule 100 mg PO DAILY oxymetazoline [12 Hour Nasal Relief [place]] 0.05 % spray,non-aerosol 2 spray intranasal Q12H PRN cbd 25 mg gum PO apple cider vinegar 600 mg capsule PO famotidine 20 mg tablet 40 mg PO DAILY Discontinued polyethylene glycol 3350 17 gram/dose powder 238 g PO ONCE Qty: 238 0RF Rx Instructions: take per colonoscopy instructions bisacodyl [Dulcolax (bisacodyl)] 5 mg tablet,delayed release (DR/EC) 5 mg PO ONCE Qty: 4 0RF Rx Instructions: take per colonoscopy instructions No Action aspirin [Aspir-Connie] 325 mg tablet,delayed release (DR/EC) 325 mg PO Q4H PRN Discharge Instructions Additional Instructions: FINDINGS: Stand Alone Forms: Colonoscopy Post Instructions Activity:: Activity as Tolerated Diet:: As Tolerated Discharge Orders Discharge Orders: Discharge Order (Routine); Ordered 08/13/23 Ordered By: Margo Aguilar DS: Diagnosis Discharge Diagnosis (1) Screening for malignant neoplasm of colon performed: Status: Acute
--- NOTE | 2023-08-13 14:38 | W.PM.DSUDISC ---
Date of service: 08/13/23 Time of Service: 14:39 Discharge Plan Disposition Patient Disposition: Home Condition: Good Discharge Details Reason For Visit: colon scope Attending Provider: Earnest Shukla Primary Care Provider: Kristie Sellers Home Meds and New Rx's Prescriptions: Continued alprazolam [Xanax] 0.5 mg tablet 0.5 mg PO QHS PRN cholecalciferol (vitamin D3) 25 mcg (1,000 unit) capsule 25 mcg PO DAILY levothyroxine 50 mcg capsule 50 mcg PO DAILY B-complex with vitamin C [Super B Complex-Vitamin C] Tablet 1 tab PO DAILY rosuvastatin 5 mg tablet 5 mg PO DAILY amitriptyline 10 mg tablet 10 mg PO BID docusate sodium [Colace] 100 mg capsule 100 mg PO DAILY oxymetazoline [12 Hour Nasal Relief [place]] 0.05 % spray,non-aerosol 2 spray intranasal Q12H PRN cbd 25 mg gum PO apple cider vinegar 600 mg capsule PO famotidine 20 mg tablet 40 mg PO DAILY Discontinued polyethylene glycol 3350 17 gram/dose powder 238 g PO ONCE Qty: 238 0RF Rx Instructions: take per colonoscopy instructions bisacodyl [Dulcolax (bisacodyl)] 5 mg tablet,delayed release (DR/EC) 5 mg PO ONCE Qty: 4 0RF Rx Instructions: take per colonoscopy instructions No Action aspirin [Aspir-Connie] 325 mg tablet,delayed release (DR/EC) 325 mg PO Q4H PRN Discharge Instructions Additional Instructions: FINDINGS: No polyps were found. You have diverticulosis. This is an extremely common condition which is benign and there is nothing that needs to be done about it. You have mild hemorrhoidal disease as well which is also benign and nothing needs to be done about it. Stand Alone Forms: Colonoscopy Post Instructions Activity:: Activity as Tolerated Diet:: As Tolerated Discharge Orders Discharge Orders: Discharge Order (Routine); Ordered 08/13/23 Ordered By: Margo Aguilar DS: Diagnosis Discharge Diagnosis (1) Screening for malignant neoplasm of colon performed: Status: Acute
--- NOTE | 2023-08-13 14:39 | W.ANESPRE ---
General Info Date of Service Date Performed: 08/13/23 Height: 5 ft 5 in Weight: 67.4 kg Body Mass Index (BMI): 24.7 Surgical Procedure: Operation Date: 08/13/23 14:20 Proposed Procedure Side Surgeon p Deena Shukla MD Meds Allergies and Home Medications Allergies Allergy/AdvReac Type Severity Reaction Status Date / Time Penicillins Allergy Severe Anaphylaxsi Verified 08/13/23 13:55 s atorvastatin AdvReac Severe abdominal Verified 08/13/23 13:55 pain, trapped gas oxycodone [Oxycodone] AdvReac Intermediate I get Verified 08/13/23 13:55 severe energy, extreme hyperactivity Sulfa (Sulfonamide AdvReac Intermediate hives Verified 08/13/23 13:55 Antibiotics) Home Medication Medication Instructions Recorded B-complex with vitamin C (Super B 1 tab PO DAILY 02/16/20 Complex-Vitamin C tablet) alprazolam 0.5 mg tablet (Xanax) 0.5 mg PO QHS PRN 02/16/20 cholecalciferol (vitamin D3) 25 25 mcg PO DAILY 02/16/20 mcg (1,000 unit) capsule levothyroxine 50 mcg capsule 50 mcg PO DAILY 02/16/20 amitriptyline 10 mg tablet 10 mg PO BID 08/09/21 docusate sodium 100 mg capsule 100 mg PO DAILY 08/09/21 (Colace) oxymetazoline 0.05 % nasal spray 2 spray intranasal Q12H PRN 08/09/21 (12 Hour Nasal Relief [place]) cbd PO 05/31/22 apple cider vinegar 600 mg capsule mg PO 04/03/23 famotidine 20 mg tablet 40 mg PO DAILY 04/03/23 rosuvastatin 5 mg tablet 5 mg PO DAILY 06/17/23 aspirin 325 mg tablet,delayed 325 mg PO Q4H PRN 08/13/23 release (Aspir-Connie) Current Visit Medications: Current Medications Generic Name Dose Route Start Last Admin Trade Name Freq PRN Reason Stop Dose Admin Hyoscyamine Sulfate 0.125 mg 08/13/23 08:50 Hyoscyamine 0.125 Mg Sl/Oral/Chew SL 09/12/23 08:49 DIRECTED PRN Ringer's Solution 1,000 mls @ 80 mls/hr 08/13/23 06:00 08/13/23 14:32 IV 12/19/23 23:59 80 mls/hr INFUSION BRANDEN Administration IV Miscellaneous Supplies 1 each 08/13/23 06:00 Iv Access IV 08/13/23 23:59 DIRECTED BRANDEN Ondansetron HCl 4 mg 08/13/23 08:50 Ondansetron 4 Mg/2 Ml Vial IVP 09/12/23 08:49 Q4H PRN PRN Nausea / Vomiting Sodium Chloride 0 ml 08/13/23 06:00 Normal Saline Flush 10 Ml Syr IV 08/13/23 23:59 PRN PRN Sodium Chloride 0 ml 08/13/23 06:00 Normal Saline 10 Ml Vial IJ 08/13/23 23:59 DIRECTED PRN Sterile Water 0 ml 08/13/23 06:00 Water,Injection,Sterile 10 Ml Vial IJ 08/13/23 23:59 DIRECTED PRN PFSH Active Problems Active Problems: Problem Status Onset Code Screening for malignant neoplasm of colon performed Z12.11 Encounter for colorectal cancer screening Z12.11, Z12.12 External incisional dehiscence T81.31XA Sun-damaged skin L57.8 Lipoma of abdominal wall D17.1 Sebaceous cyst L72.3 Lipoma D17.9 Impacted cerumen of both ears H61.23 Tear of lateral meniscus of right knee S83.281A Primary osteoarthritis of right knee M17.11 Medical History Medical History Osteopenia Palpitations only a one time thing per pt. saw PCP never came up with a cause. Hypertension Lower back pain Seasonal allergies Dyspepsia Insomnia Depression Rosacea Hypothyroidism HLD (hyperlipidemia) Stress incontinence Recurrent UTI Interstitial cystitis Breast cancer (~2009) Right breast 2010 Left breast ductal carcinoma in situ 2017 Surgical History Surgical History History of colonoscopy (~2014) Tobacco Smoking/Tobacco Use Status: Never Alcohol Alcohol Intake: current Alcohol intake frequency: a few times a week Alcohol type: wine Substance Use Substance use: Never Substance use type: does not use Vital Signs and Lab Results Vital Signs Most Recent Vital Signs in EMR: Most Recent Vital Signs Temp Pulse Resp BP Pulse Ox 36.4 C L 94 H 18 130/78 99 08/13/23 14:02 08/13/23 14:02 08/13/23 14:02 08/13/23 14:02 08/13/23 14:02 Lab Results Blood Type / Crossmatch: No Data to Display Complete Blood Count: No Data to Display Complete Metabolic Panel: No Data to Display Liver Function Panel: No Data to Display Coagulation Panel: No Data to Display Cardiac Panel: No Data to Display Arterial Blood Gas: No Data to Display Venous Blood Gas: No Data to Display Pancreas Panel: No Data to Display Thyroid Panel: No Data to Display Infectious Disease: No Data to Display Blood Cultures: No Data to Display Toxicology Panel: No Data to Display Anesthesia Assessment and Plan Anesthesia History Personal History: No History of Anesthesia Complications Family History: No Family History of Anesthesia Complications Exercise Tolerance Exercise Tolerance: Metabolic Equivalents>4 Pertinent Negatives Pertinent Negatives: No Major Cardiovascular Symptoms or Complaints and No Major Pulmonary Symptoms or Complaints Cardiac & Pulmonary Exam Cardiac Exam: Normal S1/S2 Heart Sounds Pulmonary Exam: Clear Bilateral Breath Sounds Implantable Cardiac Device Does patient have a Pacemaker or an ICD?: No Airway Exam Known Difficult Airway: No Mallampati Class: 4 Mouth Opening: Narrow (< 3cm) Thyromental Distance: Less than 3 cm Neck Range of Motion: Limited ROM Neck Circumference: Normal Teeth Condition: Normal Dentition ASA Classification ASA Score: ASA 2 Emergency Case?: No NPO Status NPO Status: NPO Clears >2 hours, Solids >8 hours Anesthesia Plan Resuscitation Status: Full Code Anesthesia Technique: General Anesthesia Airway Planned: Natural Airway Monitors Used: Standard Monitors Preoperative Comments:: Recent COVID illness, reports no residual symptoms. GERD well controlled.
[2023-08-13 14:42] VITALS: BMI 24.7
[2023-08-13 15:26] VITALS: BP 110/58; PULSE 70; RESP 16; TEMP 36.5; O2SAT 97
--- NOTE | 2023-08-13 15:31 | W.ANESPOSTOP ---
Postoperative Evaluation Date, Time and Location Date Performed: 08/13/23 Time Performed: 15:26 Patient Location: Day Surgery Unit Vital Signs Most Recent Imported Vital Signs: Most Recent Vital Signs Temp Pulse Resp BP Pulse Ox 36.5 C 70 16 110/58 L 97 08/13/23 15:26 08/13/23 15:26 08/13/23 15:26 08/13/23 15:08/13/23 15:26 Pain Score Most Recent Pain Score: Most Recent Pain Score Pain Level 0 08/13/23 15:26 Assessment Mental Status: Awake (Alert & Oriented to Patient Baseline) Airway and Respiratory Function: Patent airway with normal (patient baseline) respiratory exam Cardiovascular Function: Hemodynamically Stable Hydration Status: Adequately Hydrated Nausea & Vomiting: No Nausea or Vomiting Pain: Pt. Denies Any Pain Peripheral Nerve Block: Patient did not receive a nerve block
[2023-08-13 15:56] VITALS: BP 124/72; PULSE 77; RESP 18; TEMP 36.5; O2SAT 98
== END 2023-08-13 15:58 | disposition home or self-care (01) ==
PROVIDERS: PCP Nurse Practitioner Family; Visit Provider Student in an Organized Health Care Education/Training Program
PROC: 0DJD8ZZ Inspection of Lower Intestinal Tract, Via Natural or Artificial Opening Endoscopic (ICD-10-PCS; CPT 45378; principal; 2023-08-13 14:15)
DX: Z12.11 Encounter for screening for malignant neoplasm of colon (principal); Z80.0 Family history of malignant neoplasm of digestive organs; K57.30 Diverticulosis of large intestine without perforation or abscess without bleeding; K64.0 First degree hemorrhoids; K63.89 Other specified diseases of intestine
CPT/HCPCS: G0105; 00123

== ENCOUNTER → 2023-08-16 00:54 | Outpatient (CLI) | payer MEDICARE, SELFPAY ==
--- NOTE | 2023-08-16 | DI.MAMMO_ITS ---
Exam(s) MG MAMMO SCREENING 60 MIN DUR EXAM: MG MAMMO SCREENING 60 MIN DUR CLINICAL HISTORY: HX BREAST CANCER, C50.919, SCREENING TECHNIQUE: Bilateral full field digital CC and MLO mammographic images were obtained with 3D tomosyn thesis and utilizing computer aided detection (CAD). COMPARISON: Available for comparison. FINDINGS: Masses/Architectural Distortion: The patient has had bilateral lumpectomies. No suspicious nodules o r areas of architectural distortion are seen. Microcalcifications: No suspicious pleomorphic-type are seen. Skin Thickening/Nipple Retraction: None. IMPRESSION: 1. No significant interval change with no specific features of malignancy noted. 2. Unless there is more urgent need, screening mammography is recommended, as per [employer] guidelines. 3. Findings were discussed with the patient on the date of the examination. BI-RADS Category 2 - Benign Findings Breast Density - Category B - Scattered areas of fibroglandular density Breast density category C or D implies that the patient has dense breast tissue. Dense breast tissue is very common and is not abnormal but dense breast tissue can make it harder to find cancer on a ma mmogram. Also, dense breast tissue may increase their breast cancer risk. This information about the result of the mammogram report was provided to the patient to raise their awareness. Use this report when you speak with the patient about their risks for breast cancer, which includes their family hist ory. At that time, you may recommend for more screening tests (Ultrasound or MRI) as they might be us eful based on their risk. A negative radiographic report should not delay biopsy if a dominant or clinically suspicious mass is present. Up to ten percent of cancers are not identified on mammography. A negative report may reinforce clinical impression. Adenosis and dense breasts may obscure an underlying neoplasm. False positive reports average 6 to 10%. Patient will receive a letter notifying them of these results.
== END ==
PROVIDERS: PCP Nurse Practitioner Family; Visit Provider Nurse Practitioner Family
DX: Z12.31 Encounter for screening mammogram for malignant neoplasm of breast (principal)
CPT/HCPCS: 77063; 77067

== ENCOUNTER 2023-09-17 12:45 | Outpatient (REF) | payer MEDICARE, SELFPAY ==
[2023-09-17 15:20] LABS: ALT 32 U/L (14-59); AST 22 U/L (15-37); Albumin 3.7 g/dL (3.4-5.0); Alkaline Phosphatase 94 U/L (46-116); Anion Gap 5.4 mmol/L (3-11); BUN 20 mg/dL (7-18); Bilirubin, Total 0.4 mg/dL (0.2-1.0); CO2 29.6 mmol/L (21.0-32.0); Calcium 9.5 mg/dL (8.5-10.1); Calculated LDL 122 mg/dL (<100); Chloride 106 mmol/L (98-107); Cholesterol 238 mg/dL (<200); Estimated GFR 59.12 (mL/min/1.73m2); Glucose 104 mg/dL (74-106); HDL Cholesterol 109 mg/dL (40-60); Magnesium 2.3 mg/dL (1.8-2.4); Potassium 4.6 mmol/L (3.5-5.1); Sodium 141 mmol/L (136-145); TSH (W/Ref FT4) 2.45 uIU/mL (0.36-3.74); Total Protein 7.2 g/dL (6.4-8.2); Triglyceride 38 mg/dL (<150); Vitamin B12 1112 pg/mL (193-986)
== END 2023-09-17 12:46 | disposition home or self-care (01) ==
LOC: NCHCN 12:45
PROVIDERS: PCP Nurse Practitioner Family; Visit Provider Nurse Practitioner Family
DX: E78.5 Hyperlipidemia, unspecified (principal); I10 Essential (primary) hypertension; E03.9 Hypothyroidism, unspecified; Z79.899 Other long term (current) drug therapy
CPT/HCPCS: 80053; 80061; 82607; 83735; 84443

== ENCOUNTER 2024-07-22 01:10 | Outpatient (CLI) | payer MEDICARE, SELFPAY ==
--- NOTE | 2024-07-22 | DI.US_ITS ---
Exam(s) US LOWER EXTREMITY VENOUS LT EXAM: US LOWER EXTREMITY VENOUS LT CLINICAL HISTORY: PAIN LEFT KNEE M25.562 MASS/NODULE MIDDLE KNEE JOINT ? LIPOMA TECHNIQUE: Left lower extremity venous ultrasound performed using grayscale, color-flow, and spectra l Doppler analysis. COMPARISON: No exams were available for comparison FINDINGS: The left common femoral, femoral and popliteal veins demonstrate normal compressibility, augmentation , and color Doppler. The posterior tibial and peroneal veins are patent. The saphenofemoral junction is unremarkable. There is no evidence of a [place] cyst. The soft tissues are unremarkable. IMPRESSION: 1. No evidence of a left lower extremity DVT. 2. No sonographic evidence of a soft tissue mass or abnormality. DATA REPOSITORY:
== END 2024-07-22 01:30 ==
LOC: DI 01:10
PROVIDERS: PCP Nurse Practitioner Family; Visit Provider Nurse Practitioner Family
DX: M25.562 Pain in left knee (principal); R22.42 Localized swelling, mass and lump, left lower limb
CPT/HCPCS: 93971

== ENCOUNTER 2024-08-17 01:36 | Outpatient (CLI) | payer MEDICARE, SELFPAY ==
--- NOTE | 2024-08-17 11:13 | DI.MAMMO_ITS ---
Exam(s) MG MAMMO SCREENING 60 MIN DUR EXAM: MG MAMMO SCREENING 60 MIN DUR CLINICAL HISTORY: Screening, Z12.31; personal h/o malignant neoplasm of breast TECHNIQUE: Mammograms were interpreted according to the usual protocol including computer analysis w [employer] CAD system, tomosynthesis and C-view imaging. COMPARISON: 2018 through 2022 FINDINGS: The breasts are composed of scattered fibroglandular densities, Breast Density category B. No suspicious masses or suspicious microcalcifications are seen. Post lumpectomy scarring again righ t breast. No skin thickening or abnormal axillary lymph nodes are seen. There has been no significant change from prior exams. IMPRESSION: BI-RADS Category 2 - Benign Findings Yearly screening mammography is recommended. Breast Density - Category B, scattered fibroglandular densities. A negative radiographic report should not delay biopsy if a dominant or clinically suspicious mass is present. Up to ten percent of cancers are not identified on mammography. A negative report may reinforce clinical impression. Adenosis and dense breasts may obscure an underlying neoplasm. False positive reports average 6 to 10%. Patient will receive a letter notifying them of these results.
== END 2024-08-17 01:56 ==
LOC: DI 01:36
PROVIDERS: PCP Nurse Practitioner Family; Visit Provider Nurse Practitioner Family
DX: Z12.31 Encounter for screening mammogram for malignant neoplasm of breast (principal); R92.323 Mammographic fibroglandular density, bilateral breasts; D24.1 Benign neoplasm of right breast
CPT/HCPCS: 77063; 77067

== ENCOUNTER 2024-09-08 17:58 | Outpatient (REF) | payer MEDICARE, SELFPAY ==
[2024-09-08 16:10] LABS: Bilirubin Negative (Negative); Blood Negative (Negative); Clarity Clear (Clear); Glucose Negative (Negative); Ketones Negative (Negative); Leukocyte Esterase Negative (Negative); Nitrite Negative (Negative); Specific Gravity 1.025 (1.005-1.025); Urobilinogen 0.2 mg/dL (Up to 0.2)
[2024-09-08 16:49] LABS: ALT 19 U/L (14-59); AST 18 U/L (15-37); Albumin 3.9 g/dL (3.4-5.0); Alkaline Phosphatase 86 U/L (46-116); Anion Gap 9.6 mmol/L (3-11); BUN 15 mg/dL (7-18); Bilirubin, Total 0.37 mg/dL (0.2-1.0); CO2 27.4 mmol/L (21.0-32.0); Calculated LDL 114 mg/dL (<100); Chloride 106 mmol/L (98-107); Cholesterol 234 mg/dL (<200); Estimated GFR 59.12 (mL/min/1.73m2); Glucose 93 mg/dL (74-106); HDL Cholesterol 106 mg/dL (40-60); Potassium 4.2 mmol/L (3.5-5.1); Sodium 143 mmol/L (136-145); TSH (W/Ref FT4) 5.97 uIU/mL (0.36-3.74); Total Protein 7.1 g/dL (6.4-8.2); Triglyceride 73 mg/dL (<150); Vitamin D 25 Total 48.2 ng/mL (30-100)
[2024-09-08 17:56] LABS: FREE T4 0.88 ng/dL (0.76-1.46)
[2024-09-08 18:17] LABS: COMMENT (LAB VIEW ONLY) 178.87 mg/dL; Microalb ug/mg Crea 12.9 ug/mg Cr
== END 2024-09-08 17:59 | disposition home or self-care (01) ==
LOC: NCHCN 17:58
PROVIDERS: PCP Nurse Practitioner Family; Visit Provider Nurse Practitioner Family
DX: I10 Essential (primary) hypertension (principal); M85.89 Other specified disorders of bone density and structure, multiple sites
CPT/HCPCS: 80053; 80061; 82306; 81003; 82043; 82570; 84439; 84443

== ENCOUNTER 2024-10-22 11:58 | Outpatient (REF) | payer MEDICARE, SELFPAY ==
[2024-10-22 15:11] LABS: COMMENT (LAB VIEW ONLY) 176.06 mg/dL; Microalb ug/mg Crea 7.6 ug/mg Cr
== END 2024-10-22 11:59 | disposition home or self-care (01) ==
LOC: NCHCN 11:58
PROVIDERS: PCP Nurse Practitioner Family; Visit Provider Nurse Practitioner Family
DX: E03.9 Hypothyroidism, unspecified (principal); I10 Essential (primary) hypertension
CPT/HCPCS: 82043; 82570; 84443

== ENCOUNTER 2025-06-24 11:07 | Outpatient (REF) | payer MEDICARE, SELFPAY ==
[2025-06-24 15:24] LABS: Hemoglobin A1C 5.4 % (<5.7)
[2025-06-24 15:41] LABS: ALT 27 U/L (14-59); AST 18 U/L (15-37); Albumin 3.8 g/dL (3.4-5.0); Alkaline Phosphatase 97 U/L (46-116); Anion Gap 10.4 mmol/L (3-11); BUN 19 mg/dL (7-18); Bilirubin, Total 0.6 mg/dL (0.2-1.0); CO2 25.6 mmol/L (21.0-32.0); Calcium 9.0 mg/dL (8.5-10.1); Calculated LDL 103 mg/dL (<100); Chloride 103 mmol/L (98-107); Cholesterol 216 mg/dL (<200); Estimated GFR 76.79 (mL/min/1.73m2); Glucose 106 mg/dL (74-106); HDL Cholesterol 98 mg/dL (>or=50); Potassium 4.3 mmol/L (3.5-5.1); Sodium 139 mmol/L (136-145); TSH (W/Ref FT4) 2.34 uIU/mL (0.36-3.74); Total Protein 7.1 g/dL (6.4-8.2); Triglyceride 75 mg/dL (<150)
[2025-06-24 16:37] LABS: COMMENT (LAB VIEW ONLY) 228.32 mg/dL; Microalb ug/mg Crea 5.4 ug/mg Cr
[2025-06-25 13:33] LABS: Vitamin D 25 Total 48 ng/mL (30-100)
== END 2025-06-24 11:08 | disposition home or self-care (01) ==
LOC: NCHCN 11:07
PROVIDERS: PCP Nurse Practitioner Family; Visit Provider Nurse Practitioner Family
DX: Z13.1 Encounter for screening for diabetes mellitus (principal); I10 Essential (primary) hypertension; E03.9 Hypothyroidism, unspecified; M85.80 Other specified disorders of bone density and structure, unspecified site
CPT/HCPCS: 80053; 80061; 82306; 82043; 82570; 83036; 84443

== ENCOUNTER 2025-07-29 15:42 | Outpatient (REF) | payer MEDICARE, SELFPAY ==
[2025-07-29 21:16] LABS: Abs Immature Grans 0.01 10^3/uL (0.0-0.06); HCT 41.6 % (36.0-46.0); HGB 13.4 g/dL (11.2-15.7); Immature Grans % 0.2 %; MCH 29.6 pg (27.0-33.0); MCHC 32.2 % (32.0-36.0); MCV 92 fL (80-95); MPV 10.6 fL (8.0-11.0); Platelet Count 232 10^3/uL (130-400); RBC 4.52 10^6/uL (3.93-5.22); RDW 13.1 % (11.7-14.6); RDW-SD 44.4 fL; WBC 4.94 10^3/uL (4.4-10.8)
[2025-07-29 21:36] LABS: Anion Gap 9.7 mmol/L (3-11); BUN 17 mg/dL (9-23); CO2 25.3 mmol/L (20.0-31.0); Calcium 9.4 mg/dL (8.3-10.6); Chloride 105 mmol/L (98-107); Glucose 89 mg/dL (74-106); Potassium 4.2 mmol/L (3.5-5.1); Sodium 140 mmol/L (136-145)
[2025-07-29 21:39] LABS: TSH 2.77 uIU/mL (0.55-4.78)
== END 2025-07-29 15:43 | disposition home or self-care (01) ==
LOC: NCHCN 15:42
PROVIDERS: PCP Nurse Practitioner Family; Visit Provider Nurse Practitioner Family
DX: R00.2 Palpitations (principal)
CPT/HCPCS: 80048; 84443; 85025